=== PATIENT | female | born 1960 ===

== ENCOUNTER 2021-04-24 19:11 | Inpatient (IN) | payer BC ==
[2021-04-24] MEDS ORDERED: Norepinephrine 8 MG/0.9% NS 250 ML ONE (22:19)
[2021-04-24] MEDS ORDERED: Propofol 1,000 MG/100 ML VIAL IV ONE (22:19)
[2021-04-24] MEDS ORDERED: Ondansetron PF 4 MG/2 ML Vial IVP PRN (22:31)
[2021-04-24] MEDS ORDERED: Ventilator Sedation Protocol 1 EACH FS SCH (22:45)
[2021-04-24 22:59] LABS: Hemoglobin 10.5 g/dL (12.0-16.0); Mean Corpuscular HGB CONC 31.1 g/dL (32.0-36.0); Mean Corpuscular Hemoglobin 30.1 pg (27.0-31.0); Mean Corpuscular Volume 96.8 fL (78.0-98.0); Mean Platelet Volume 8.7 fL (7.4-10.4); Platelet Count 236 thou/uL (130-400); RBC Distribution Width 14.7 % (11.5-14.5); Red Blood Cell (RBC) Count 3.49 mill/uL (4.20-5.40); White Blood Cell (WBC) Count 20.6 thou/uL (4.8-10.8)
[2021-04-24] MEDS ORDERED: Fentanyl BOLUS 250 ML IVPB PRN (23:00)
[2021-04-24] MEDS ORDERED: Morphine 4 MG/ML VIAL SLOW IVP PRN (23:00)
[2021-04-24] MEDS ORDERED: Propofol BOLUS 1,000 MG/100 ML VIAL IV PRN (23:00)
[2021-04-24] MEDS ORDERED: DISCONTINUE PREVIOUS NARCOTIC PAIN MEDICATIONS AND BENZODIAZEPINES FS SCH (23:00)
[2021-04-24] MEDS ORDERED: Morphine 2 MG/ML VIAL SLOW IVP PRN (23:00)
[2021-04-24 23:14] LABS: Band 38 % (5-11); Hypochromia SLIGHT = 6-15 cells (100X) (0-5/hpf); MDiff Complete? YES; Monocytes 9 % (0-10); Neutrophil 53 % (42-75); Platelet Morphology Comment Appears Adequate
[2021-04-24 23:23] LABS: ALT (SGPT) 60 U/L (8-55); AST (SGOT) 27 U/L (5-34); Albumin 2.7 g/dL (3.4-4.8); Alkaline Phosphatase 165 U/L (40-110); Anion Gap 22 mmol/L (10-20); BUN (Urea Nitrogen) 82 mg/dL (9.8-20.1); Bilirubin, Total 0.8 mg/dL (0.2-1.2); Calc. Creatinine Clearance 32 mL/min (70-130); Calcium 7.9 mg/dL (7.8-10.44); Carbon Dioxide 25 mmol/L (23-31); Chloride 94 mmol/L (98-107); Globulin 4.2 g/dL (2.4-3.5); Glucose 188 mg/dL (80-115); Potassium 4.3 mmol/L (3.5-5.1); Protein, Total 6.9 g/dL (5.8-8.1); Sodium 137 mmol/L (136-145)
[2021-04-24] MEDS: Norepinephrine 8 MG/0.9% NS 250 ML IVPB PRN (23:23)
[2021-04-24] MEDS: Propofol 1,000 MG/100 ML VIAL IV PRN (23:23)
[2021-04-24] MEDS ORDERED: HumaLOG 300 UNITS/3 ML VIAL SC PRN (23:56)
[2021-04-24] MEDS ORDERED: Dextrose 50% Abboject 50 ML SYRINGE SLOW IVP PRN (23:56)
[2021-04-24] MEDS ORDERED: Dextrose 5% in Water 1,000 ML IV PRN (23:56)
[2021-04-25] MEDS ORDERED: Sodium Chloride 0.9% 1,000 ML IV SCH (00:30)
[2021-04-25] MEDS: HumaLOG 300 UNITS/3 ML VIAL SC PRN ×2 (01:11→20:45)
[2021-04-25] MEDS ORDERED: Sterile Water 10 ML VIAL IVP PRN (02:17)
[2021-04-25] MEDS: Propofol 1,000 MG/100 ML VIAL IV PRN ×5 (03:00→20:18)
[2021-04-25] MEDS: Lorazepam 2 MG/ML VIAL SLOW IVP PRN (03:00)
[2021-04-25] MEDS: Vecuronium 10 MG VIAL IV PRN (03:05)
[2021-04-25 04:35] LABS: ALT (SGPT) 54 U/L (8-55); AST (SGOT) 29 U/L (5-34); Albumin 2.5 g/dL (3.4-4.8); Alkaline Phosphatase 150 U/L (40-110); Anion Gap 22 mmol/L (10-20); BUN (Urea Nitrogen) 86 mg/dL (9.8-20.1); Bilirubin, Total 0.7 mg/dL (0.2-1.2); Calc. Creatinine Clearance 30 mL/min (70-130); Calcium 7.6 mg/dL (7.8-10.44); Carbon Dioxide 24 mmol/L (23-31); Chloride 96 mmol/L (98-107); Globulin 3.8 g/dL (2.4-3.5); Glucose 164 mg/dL (80-115); Potassium 4.2 mmol/L (3.5-5.1); Protein, Total 6.3 g/dL (5.8-8.1); Sodium 138 mmol/L (136-145)
[2021-04-25 04:37] LABS: Band 38 % (5-11); Hemoglobin 9.4 g/dL (12.0-16.0); Hypochromia SLIGHT = 6-15 cells (100X) (0-5/hpf); MDiff Complete? YES; Mean Corpuscular HGB CONC 30.8 g/dL (32.0-36.0); Mean Corpuscular Hemoglobin 29.4 pg (27.0-31.0); Mean Corpuscular Volume 95.5 fL (78.0-98.0); Mean Platelet Volume 8.8 fL (7.4-10.4); Monocytes 13 % (0-10); Neutrophil 49 % (42-75); Platelet Count 217 thou/uL (130-400); Platelet Morphology Comment Appears Adequate; RBC Distribution Width 14.6 % (11.5-14.5); Red Blood Cell (RBC) Count 3.18 mill/uL (4.20-5.40); White Blood Cell (WBC) Count 17.7 thou/uL (4.8-10.8)
[2021-04-25 08:15] LABS: Actual Bicarbonate (HCO3a) 24.3 mEq/L (22-28); Base Excess (BEa) -2.8 mEq/L (-2.0 to +3.0); CO2 Tension 53.2 mmHg (35.0-45.0); Calcium, Ionized (arterial) 0.94 mmol/L (1.12-1.30); Carboxyhemoglobin (COHb) 0.1 gm% (0.0-3.0); Hemoglobin (Hb) 9.8 g/dL (12.0-16.0); Potassium - ABG Lab 3.98 mmol/L (3.70-5.30); Puncture Site Arterial Line; pH, Arterial 7.28 (7.35-7.45)
[2021-04-25] MEDS ORDERED: Enoxaparin Sodium 40 MG/0.4 ML SYRINGE SC SCH (09:00)
[2021-04-25] MEDS: Famotidine 20 MG TAB PO SCH (10:01)
[2021-04-25] MEDS: Zinc Sulfate 220 MG CAP PO SCH (10:01)
[2021-04-25] MEDS: Dexamethasone 10 MG/ML VIAL SLOW IVP SCH ×2 (10:02→20:18)
[2021-04-25] MEDS: Ascorbic Acid 500 mg Chewable Tablet PO SCH (10:02)
[2021-04-25] MEDS ORDERED: Vancomycin 1 GM in Premix Bag 1 BAG IVPB SCH (10:45)
[2021-04-25 11:14] LABS: Clarity Turbid (Clear)
[2021-04-25 11:15] LABS: Leukocyte Unable to Interpret (Negative); Nitrite Unable to Interpret (Negative); Protein, Urine (Dipstick) Unable to Interpret mg/dL (Neg-Trace); Specific Gravity, Urine 1.015 (1.002-1.036); pH, Urine 5.7 (5.0-9.0)
[2021-04-25 11:16] LABS: Bilirubin Unable to Interpret (Negative); Blood, Urine Unable to Interpret (Negative); Glucose, Urine (Dipstick) Unable to Interpret mg/dL (Negative); Ketone, Urine Unable to Interpret mg/dL (Negative); Urobilinogen UNABLE TO INTERPRET mg/dL (Less than 2)
[2021-04-25 11:18] LABS: RBC/HPF Greater than 50 HPF (0-3)
[2021-04-25 11:20] LABS: Bacteria/HPF 1+ HPF (None Seen)
[2021-04-25 11:36] LABS: Creatinine, Urine 32.45 mg/dL (47-110)
[2021-04-25] MEDS: Sodium Chloride 0.9% 1,000 ML IV SCH ×2 (13:19→20:19)
[2021-04-25] MEDS: Acetaminophen 325 MG TAB PO PRN ×2 (13:29→17:39)
[2021-04-25] MEDS: Albumin 25% 25 GM/100 ML BOT IVPB SCH ×2 (13:30→20:18)
[2021-04-25] MEDS: Cefepime 2 GM in Sodium Chloride 0.9% 100 ML IVPB SCH (15:46)
[2021-04-25] MEDS: Norepinephrine 8 MG/0.9% NS 250 ML IVPB PRN (17:39)
[2021-04-26] MEDS: Albumin 25% 25 GM/100 ML BOT IVPB SCH ×2 (02:12→10:11)
[2021-04-26] MEDS: Sodium Chloride 0.9% 1,000 ML IV SCH (04:00)
[2021-04-26 04:55] LABS: ALT (SGPT) 48 U/L (8-55); AST (SGOT) 45 U/L (5-34); Alkaline Phosphatase 99 U/L (40-110); Anion Gap 27 mmol/L (10-20); BUN (Urea Nitrogen) 104 mg/dL (9.8-20.1); Bilirubin, Total 0.8 mg/dL (0.2-1.2); Calc. Creatinine Clearance 24 mL/min (70-130); Calcium 6.5 mg/dL (7.8-10.44); Carbon Dioxide 19 mmol/L (23-31); Chloride 97 mmol/L (98-107); Globulin 2.6 g/dL (2.4-3.5); Glucose 158 mg/dL (80-115); Potassium 4.5 mmol/L (3.5-5.1); Protein, Total 5.6 g/dL (5.8-8.1); Sodium 138 mmol/L (136-145)
[2021-04-26 05:58] LABS: Band 21 % (5-11); Hemoglobin 8.2 g/dL (12.0-16.0); Lymphocytes 8 % (21-51); MDiff Complete? YES; Mean Corpuscular HGB CONC 31.8 g/dL (32.0-36.0); Mean Corpuscular Hemoglobin 29.7 pg (27.0-31.0); Mean Corpuscular Volume 93.5 fL (78.0-98.0); Mean Platelet Volume 8.8 fL (7.4-10.4); Monocytes 6 % (0-10); Myelocyte 5 % (0-0); Neutrophil 60 % (42-75); Platelet Count 180 thou/uL (130-400); Platelet Morphology Comment Appears Adequate; RBC Distribution Width 14.6 % (11.5-14.5); RBC Morphology Normal; Red Blood Cell (RBC) Count 2.74 mill/uL (4.20-5.40); White Blood Cell (WBC) Count 13.6 thou/uL (4.8-10.8)
[2021-04-26 07:41] LABS: Actual Bicarbonate (HCO3a) 19.9 mEq/L (22-28); Base Excess (BEa) -7.2 mEq/L (-2.0 to +3.0); CO2 Tension 48.1 mmHg (35.0-45.0); Calcium, Ionized (arterial) 0.87 mmol/L (1.12-1.30); Carboxyhemoglobin (COHb) 0.3 gm% (0.0-3.0); Potassium - ABG Lab 4.51 mmol/L (3.70-5.30)
[2021-04-26 07:57] LABS: Puncture Site Arterial Line; pH, Arterial 7.24 (7.35-7.45)
[2021-04-26 07:58] LABS: ALV-art Gradient 329.325 mmHg (0-20)
[2021-04-26] MEDS: Propofol 1,000 MG/100 ML VIAL IV PRN ×2 (10:11→21:04)
[2021-04-26] MEDS: Dexamethasone 10 MG/ML VIAL SLOW IVP SCH ×2 (10:12→21:03)
[2021-04-26] MEDS: Famotidine 20 MG TAB PO SCH (10:12)
[2021-04-26] MEDS: Ascorbic Acid 500 mg Chewable Tablet PO SCH (10:12)
[2021-04-26] MEDS: Zinc Sulfate 220 MG CAP PO SCH (10:12)
[2021-04-26 11:35] LABS: Vancomycin, Random 19.1 ug/mL (See Comment)
[2021-04-26] MEDS ORDERED: Vancomycin HCl 500 MG in Sodium Chloride 0.9% 100 ML IVPB SCH (12:00)
[2021-04-26] MEDS ORDERED: Vancomycin 1 GM in Premix Bag 1 BAG IVPB SCH (12:00)
[2021-04-26] MEDS: Sodium Bicarbonate 140 MEQ in Dextrose 5% in Water 1,000 ML IV SCH (12:06)
[2021-04-26] MEDS: Cefepime 2 GM in Sodium Chloride 0.9% 100 ML IVPB SCH (16:01)
[2021-04-26] MEDS: HumaLOG 300 UNITS/3 ML VIAL SC PRN ×2 (17:53→21:11)
[2021-04-27] MEDS: Sodium Bicarbonate 140 MEQ in Dextrose 5% in Water 1,000 ML IV SCH ×2 (04:31→21:27)
[2021-04-27] MEDS: HumaLOG 300 UNITS/3 ML VIAL SC PRN ×4 (04:32→22:51)
[2021-04-27] MEDS: Lorazepam 2 MG/ML VIAL SLOW IVP PRN (04:36)
[2021-04-27 05:02] LABS: Band 38 % (5-11); Hemoglobin 8.5 g/dL (12.0-16.0); Hypochromia SLIGHT = 6-15 cells (100X) (0-5/hpf); Lymphocytes 1 % (21-51); MDiff Complete? YES; Mean Corpuscular HGB CONC 32.7 g/dL (32.0-36.0); Mean Corpuscular Hemoglobin 30.2 pg (27.0-31.0); Mean Corpuscular Volume 92.3 fL (78.0-98.0); Mean Platelet Volume 9.3 fL (7.4-10.4); Metamyelocyte 3 % (0-0); Monocytes 6 % (0-10); Neutrophil 52 % (42-75); Platelet Count 138 thou/uL (130-400); Platelet Morphology Comment Appears Adequate; RBC Distribution Width 14.9 % (11.5-14.5); Red Blood Cell (RBC) Count 2.83 mill/uL (4.20-5.40); White Blood Cell (WBC) Count 15.6 thou/uL (4.8-10.8)
[2021-04-27 05:04] LABS: ALT (SGPT) 44 U/L (8-55); AST (SGOT) 41 U/L (5-34); Albumin 2.6 g/dL (3.4-4.8); Alkaline Phosphatase 117 U/L (40-110); Anion Gap 24 mmol/L (10-20); BUN (Urea Nitrogen) 124 mg/dL (9.8-20.1); Bilirubin, Total 0.7 mg/dL (0.2-1.2); Calc. Creatinine Clearance 23 mL/min (70-130); Calcium 6.6 mg/dL (7.8-10.44); Carbon Dioxide 19 mmol/L (23-31); Chloride 98 mmol/L (98-107); Globulin 3.2 g/dL (2.4-3.5); Glucose 184 mg/dL (80-115); Potassium 4.1 mmol/L (3.5-5.1); Protein, Total 5.8 g/dL (5.8-8.1); Sodium 137 mmol/L (136-145)
[2021-04-27] MEDS: Propofol 1,000 MG/100 ML VIAL IV PRN ×3 (05:39→18:31)
[2021-04-27 07:41] LABS: Actual Bicarbonate (HCO3a) 23.7 mEq/L (22-28); Base Excess (BEa) -2.7 mEq/L (-2.0 to +3.0); CO2 Tension 49.1 mmHg (35.0-45.0); Calcium, Ionized (arterial) 0.84 mmol/L (1.12-1.30); Carboxyhemoglobin (COHb) 0.3 gm% (0.0-3.0); Hemoglobin (Hb) 8.7 g/dL (12.0-16.0); Potassium - ABG Lab 3.81 mmol/L (3.70-5.30)
[2021-04-27] MEDS: Dexamethasone 10 MG/ML VIAL SLOW IVP SCH ×2 (08:37→21:27)
[2021-04-27] MEDS: Famotidine 20 MG TAB PO SCH (08:37)
[2021-04-27] MEDS: Zinc Sulfate 220 MG CAP PO SCH (08:37)
[2021-04-27 08:38] LABS: O2 Tension (PaO2), arterial 49.8 mmHg (> 80.0)
[2021-04-27] MEDS: Ascorbic Acid 500 mg Chewable Tablet PO SCH (08:38)
[2021-04-27 08:39] LABS: Puncture Site LRA
[2021-04-27 08:40] LABS: ALV-art Gradient 245.325 mmHg (0-20)
[2021-04-27 12:42] LABS: Vancomycin, Random 21.9 ug/mL (See Comment)
[2021-04-27] MEDS: Cefepime 2 GM in Sodium Chloride 0.9% 100 ML IVPB SCH (16:07)
[2021-04-28] MEDS: Propofol 1,000 MG/100 ML VIAL IV PRN ×2 (02:20→07:29)
[2021-04-28 04:39] LABS: Band 19 % (5-11); Eosinophils 1 % (0-10); Hemoglobin 9.4 g/dL (12.0-16.0); Lymphocytes 5 % (21-51); MDiff Complete? YES; Mean Corpuscular HGB CONC 33.2 g/dL (32.0-36.0); Mean Corpuscular Hemoglobin 30.1 pg (27.0-31.0); Mean Corpuscular Volume 90.7 fL (78.0-98.0); Metamyelocyte 3 % (0-0); Monocytes 7 % (0-10); Neutrophil 64 % (42-75); Platelet Count 102 thou/uL (130-400); Platelet Morphology Comment Appears Decreased; RBC Distribution Width 15.1 % (11.5-14.5); Reactive Lymphocytes 1 % (0-10); Red Blood Cell (RBC) Count 3.14 mill/uL (4.20-5.40); White Blood Cell (WBC) Count 16.2 thou/uL (4.8-10.8)
[2021-04-28 04:46] LABS: ALT (SGPT) 39 U/L (8-55); AST (SGOT) 33 U/L (5-34); Albumin 2.6 g/dL (3.4-4.8); Alkaline Phosphatase 116 U/L (40-110); Anion Gap 23 mmol/L (10-20); Bilirubin, Total 0.6 mg/dL (0.2-1.2); Calc. Creatinine Clearance 23 mL/min (70-130); Calcium 6.6 mg/dL (7.8-10.44); Carbon Dioxide 25 mmol/L (23-31); Chloride 97 mmol/L (98-107); Globulin 3.7 g/dL (2.4-3.5); Glucose 259 mg/dL (80-115); Potassium 4.1 mmol/L (3.5-5.1); Protein, Total 6.3 g/dL (5.8-8.1); Sodium 141 mmol/L (136-145)
[2021-04-28 04:57] LABS: BUN (Urea Nitrogen) 115 mg/dL (9.8-20.1)
[2021-04-28] MEDS: HumaLOG 300 UNITS/3 ML VIAL SC PRN ×4 (06:27→22:58)
[2021-04-28 07:19] LABS: Vancomycin, Random 20.2 ug/mL (See Comment)
[2021-04-28 07:26] LABS: Actual Bicarbonate (HCO3a) 28.9 mEq/L (22-28); Base Excess (BEa) 3.5 mEq/L (-2.0 to +3.0); CO2 Tension 47.8 mmHg (35.0-45.0); Calcium, Ionized (arterial) 0.84 mmol/L (1.12-1.30); Carboxyhemoglobin (COHb) 0.3 gm% (0.0-3.0); Hemoglobin (Hb) 9.4 g/dL (12.0-16.0); Potassium - ABG Lab 3.68 mmol/L (3.70-5.30)
[2021-04-28 07:27] LABS: O2 Tension (PaO2), arterial 57.6 mmHg (> 80.0)
[2021-04-28 07:28] LABS: Puncture Site LRA
[2021-04-28] MEDS: Dexamethasone 10 MG/ML VIAL SLOW IVP SCH ×2 (08:56→21:47)
[2021-04-28] MEDS: Zinc Sulfate 220 MG CAP PO SCH (08:56)
[2021-04-28] MEDS: Famotidine 20 MG TAB PO SCH (08:56)
[2021-04-28] MEDS: Ascorbic Acid 500 mg Chewable Tablet PO SCH (08:56)
[2021-04-28] MEDS: Heparin 5,000 UNITS/ML VIAL SC SCH ×2 (09:33→21:57)
[2021-04-28] MEDS: fentaNYL Citrate/PF 2,000 MCG in Sodium Chloride 0.9% 60 ML IV SCH ×2 (10:20→22:21)
[2021-04-28] MEDS ORDERED: Vancomycin HCl 500 MG in Sodium Chloride 0.9% 100 ML IVPB SCH (12:00)
[2021-04-28] MEDS: Sodium Bicarbonate 140 MEQ in Dextrose 5% in Water 1,000 ML IV SCH (12:32)
[2021-04-28] MEDS: Senokot S 8.6-50 MG TAB PO SCH ×2 (12:39→21:57)
[2021-04-28] MEDS: Polyethylene Glycol 3350 17 GM Packet PER TUBE SCH (12:39)
[2021-04-28] MEDS: Lorazepam 2 MG/ML VIAL SLOW IVP PRN ×2 (14:22→22:10)
[2021-04-28] MEDS ORDERED: Magnesium 2 GM/50 ML 2 GM in Premix Bag 1 BAG IVPB SCH (14:45)
[2021-04-28] MEDS: Cefepime 2 GM in Sodium Chloride 0.9% 100 ML IVPB SCH (16:41)
[2021-04-29] MEDS: Lorazepam 2 MG/ML VIAL SLOW IVP PRN ×3 (01:40→23:39)
[2021-04-29] MEDS: Vecuronium 10 MG VIAL IV PRN (01:48)
[2021-04-29] MEDS: Sodium Bicarbonate 140 MEQ in Dextrose 5% in Water 1,000 ML IV SCH ×2 (01:50→03:51)
[2021-04-29] MEDS: Propofol 1,000 MG/100 ML VIAL IV PRN ×5 (03:47→21:26)
[2021-04-29 03:57] LABS: Band 34 % (5-11); Eosinophils 1 % (0-10); Hemoglobin 9.6 g/dL (12.0-16.0); Hypochromia SLIGHT = 6-15 cells (100X) (0-5/hpf); Lymphocytes 9 % (21-51); MDiff Complete? YES; Mean Corpuscular HGB CONC 31.7 g/dL (32.0-36.0); Mean Corpuscular Volume 91.6 fL (78.0-98.0); Mean Platelet Volume 10.5 fL (7.4-10.4); Monocytes 4 % (0-10); Neutrophil 52 % (42-75); Platelet Count 53 thou/uL (130-400); Platelet Morphology Comment Appears Decreased; RBC Distribution Width 15.2 % (11.5-14.5); Red Blood Cell (RBC) Count 3.32 mill/uL (4.20-5.40)
[2021-04-29 04:07] LABS: Magnesium 3.2 mg/dL (1.6-2.6)
[2021-04-29] MEDS: HumaLOG 300 UNITS/3 ML VIAL SC PRN ×4 (04:19→21:59)
[2021-04-29 06:48] LABS: Anion Gap 23 mmol/L (10-20); Calc. Creatinine Clearance 26 mL/min (70-130); Calcium 6.4 mg/dL (7.8-10.44); Carbon Dioxide 25 mmol/L (23-31); Chloride 93 mmol/L (98-107); Glucose 326 mg/dL (80-115); Potassium 4.3 mmol/L (3.5-5.1); Sodium 137 mmol/L (136-145)
[2021-04-29 06:59] LABS: BUN (Urea Nitrogen) 123 mg/dL (9.8-20.1)
[2021-04-29 07:45] LABS: Actual Bicarbonate (HCO3a) 30.4 mEq/L (22-28); Base Excess (BEa) 3.3 mEq/L (-2.0 to +3.0); Calcium, Ionized (arterial) 0.85 mmol/L (1.12-1.30); Carboxyhemoglobin (COHb) 0.8 gm% (0.0-3.0); Hemoglobin (Hb) 9.1 g/dL (12.0-16.0); pH, Arterial 7.31 (7.35-7.45)
[2021-04-29 07:47] LABS: CO2 Tension 61.3 mmHg (35.0-45.0); O2 Tension (PaO2), arterial 55.2 mmHg (> 80.0); Puncture Site RRA
[2021-04-29 07:48] LABS: ALV-art Gradient 260.325 mmHg (0-20)
[2021-04-29] MEDS: Sodium Chloride 0.9% 1,000 ML IV SCH ×2 (08:31→15:40)
[2021-04-29] MEDS: Heparin 5,000 UNITS/ML VIAL SC SCH (09:45)
[2021-04-29] MEDS: Famotidine 20 MG TAB PO SCH (09:59)
[2021-04-29] MEDS: Polyethylene Glycol 3350 17 GM Packet PER TUBE SCH (09:59)
[2021-04-29] MEDS: Dexamethasone 10 MG/ML VIAL SLOW IVP SCH ×2 (09:59→21:59)
[2021-04-29] MEDS: Senokot S 8.6-50 MG TAB PO SCH ×2 (09:59→21:59)
[2021-04-29] MEDS: Zinc Sulfate 220 MG CAP PO SCH (09:59)
[2021-04-29] MEDS: Ascorbic Acid 500 mg Chewable Tablet PO SCH (09:59)
[2021-04-29] MEDS: fentaNYL Citrate/PF 2,000 MCG in Sodium Chloride 0.9% 60 ML IV SCH ×2 (10:00→23:58)
[2021-04-29 13:43] LABS: Hemoglobin 9.9 g/dL (12.0-16.0); Mean Corpuscular HGB CONC 32.7 g/dL (32.0-36.0); Mean Corpuscular Hemoglobin 29.9 pg (27.0-31.0); Mean Corpuscular Volume 91.6 fL (78.0-98.0); Platelet Count 43 thou/uL (130-400); RBC Distribution Width 15.3 % (11.5-14.5); White Blood Cell (WBC) Count 14.2 thou/uL (4.8-10.8)
[2021-04-29 14:00] LABS: Fibrinogen 782 mg/dL (253-463)
[2021-04-29 14:01] LABS: INR-International Normal Ratio 1.1; PTT 26.5 sec (22.9-36.1); Prothrombin Time 14.6 sec (12.0-14.7)
[2021-04-29 14:05] LABS: Platelet Count 43 thou/uL (130-400)
[2021-04-29 14:09] LABS: Band 13 % (5-11); D-Dimer Test 12.67 *mcg/mL (0.27-0.43); Eosinophils 1 % (0-10); Lymphocytes 8 % (21-51); MDiff Complete? YES; Metamyelocyte 3 % (0-0); Monocytes 3 % (0-10); Neutrophil 72 % (42-75); Nucleated RBC 1 % (0); Platelet Morphology Comment Appears Decreased; Polychromasia SLIGHT = 2-3 cells (100X) (0-2/hpf); Target Cells SLIGHT = 2-5 cells (100X) (0-1/hpf)
[2021-04-29] MEDS: Cefepime 2 GM in Sodium Chloride 0.9% 100 ML IVPB SCH (15:38)
[2021-04-30] MEDS: Sodium Chloride 0.9% 1,000 ML IV SCH ×4 (00:20→21:30)
[2021-04-30] MEDS: Propofol 1,000 MG/100 ML VIAL IV PRN ×6 (01:21→19:25)
[2021-04-30] MEDS: HumaLOG 300 UNITS/3 ML VIAL SC PRN ×4 (03:56→21:44)
[2021-04-30 05:37] LABS: ALT (SGPT) 35 U/L (8-55); AST (SGOT) 31 U/L (5-34); Albumin 2.5 g/dL (3.4-4.8); Alkaline Phosphatase 107 U/L (40-110); Anion Gap 23 mmol/L (10-20); Bilirubin, Total 0.5 mg/dL (0.2-1.2); Calc. Creatinine Clearance 28 mL/min (70-130); Calcium 6.1 mg/dL (7.8-10.44); Carbon Dioxide 27 mmol/L (23-31); Chloride 95 mmol/L (98-107); Globulin 3.8 g/dL (2.4-3.5); Glucose 233 mg/dL (80-115); Protein, Total 6.3 g/dL (5.8-8.1); Sodium 140 mmol/L (136-145)
[2021-04-30 05:48] LABS: BUN (Urea Nitrogen) 132 mg/dL (9.8-20.1)
[2021-04-30 05:58] LABS: Hemoglobin 8.9 g/dL (12.0-16.0); Mean Corpuscular HGB CONC 32.6 g/dL (32.0-36.0); RBC Distribution Width 15.4 % (11.5-14.5); Red Blood Cell (RBC) Count 2.98 mill/uL (4.20-5.40)
[2021-04-30 06:06] LABS: Band 20 % (5-11); Lymphocytes 3 % (21-51); MDiff Complete? YES; Mean Platelet Volume 11.1 fL (7.4-10.4); Metamyelocyte 4 % (0-0); Monocytes 1 % (0-10); Myelocyte 2 % (0-0); Neutrophil 70 % (42-75); Platelet Count 38 thou/uL (130-400); Platelet Morphology Comment Appears Decreased
[2021-04-30] MEDS: Dexamethasone 10 MG/ML VIAL SLOW IVP SCH ×2 (08:41→21:30)
[2021-04-30] MEDS: Zinc Sulfate 220 MG CAP PO SCH ×2 (08:45→13:08)
[2021-04-30] MEDS: Famotidine 20 MG TAB PO SCH ×2 (08:45→13:08)
[2021-04-30] MEDS: Ascorbic Acid 500 mg Chewable Tablet PO SCH ×2 (08:45→13:08)
[2021-04-30] MEDS: Senokot S 8.6-50 MG TAB PO SCH ×3 (08:45→21:30)
[2021-04-30] MEDS: Polyethylene Glycol 3350 17 GM Packet PER TUBE SCH (08:45)
[2021-04-30] MEDS ORDERED: Iopamidol 370 76% 50 ML VIAL FS ONE (08:56)
[2021-04-30] MEDS: Lorazepam 2 MG/ML VIAL SLOW IVP PRN (13:07)
[2021-04-30] MEDS: fentaNYL Citrate/PF 2,000 MCG in Sodium Chloride 0.9% 60 ML IV SCH (14:03)
[2021-04-30] MEDS: Cefepime 2 GM in Sodium Chloride 0.9% 100 ML IVPB SCH (16:03)
[2021-05-01] MEDS: Propofol 1,000 MG/100 ML VIAL IV PRN (00:02)
[2021-05-01] MEDS: Lorazepam 2 MG/ML VIAL SLOW IVP PRN (01:21)
[2021-05-01] MEDS: Vecuronium 10 MG VIAL IV PRN (01:21)
[2021-05-01 01:56] VITALS: BP 151/71
[2021-05-01] MEDS ORDERED: Norepinephrine 8 MG/0.9% NS 250 ML ONE (03:01)
[2021-05-01 03:51] LABS: Actual Bicarbonate (HCO3a) 21.9 mEq/L (22-28); Base Excess (BEa) -10.4 mEq/L (-2.0 to +3.0); CO2 Tension 91.7 mmHg (35.0-45.0); Carboxyhemoglobin (COHb) 1.2 gm% (0.0-3.0); Hemoglobin (Hb) 10.6 g/dL (12.0-16.0); O2 Tension (PaO2), arterial 71.6 mmHg (> 80.0)
[2021-05-01 03:52] LABS: ALV-art Gradient 526.775 mmHg (0-20); Analyzer IN Cardio OR; Calcium, Ionized (arterial) 0.87 mmol/L (1.12-1.30); Potassium - ABG Lab 5.93 mmol/L (3.70-5.30); Puncture Site LBR
[2021-05-01] MEDS ORDERED: Sodium Bicarb 50 MEQ/50 ML Abboject 8.4% SYRINGE ONE (04:06)
[2021-05-01 04:11] LABS: Anion Gap 23 mmol/L (10-20); Calc. Creatinine Clearance 0 mL/min (70-130); Calcium 5.7 mg/dL (7.8-10.44); Carbon Dioxide 26 mmol/L (23-31); Chloride 100 mmol/L (98-107); Glucose 206 mg/dL (80-115); Potassium 6.1 mmol/L (3.5-5.1); Sodium 143 mmol/L (136-145)
[2021-05-01 04:17] LABS: BUN (Urea Nitrogen) 142 mg/dL (9.8-20.1)
[2021-05-01 04:45] LABS: Band 13 % (5-11); Hemoglobin 9.3 g/dL (12.0-16.0); Lymphocytes 15 % (21-51); MDiff Complete? YES; Mean Corpuscular HGB CONC 31.6 g/dL (32.0-36.0); Mean Corpuscular Hemoglobin 29.5 pg (27.0-31.0); Mean Corpuscular Volume 93.2 fL (78.0-98.0); Mean Platelet Volume 10.8 fL (7.4-10.4); Neutrophil 72 % (42-75); Platelet Count 67 thou/uL (130-400); Platelet Morphology Comment Appears Decreased; RBC Distribution Width 15.5 % (11.5-14.5); Red Blood Cell (RBC) Count 3.14 mill/uL (4.20-5.40); White Blood Cell (WBC) Count 26.1 thou/uL (4.8-10.8)
[2021-05-01 05:19] LABS: INR-International Normal Ratio 1.2; Prothrombin Time 14.8 sec (12.0-14.7)
[2021-05-01 05:27] VITALS: BMI 46.9
[2021-05-01 05:29] VITALS: TEMP 98.8
[2021-05-01 15:37] LABS: Heparin-Induced Ab (HITA) 0.594 OD (0.000-0.400)
== END 2021-05-01 08:45 | disposition expired | DRG 870 ==
LOC: CCU 22:15
PROVIDERS: ADMIT Internal Medicine; ATTEND Hospitalist
PROC: 5A1955Z Respiratory Ventilation, Greater than 96 Consecutive Hours (ICD-10-PCS; principal; 2021-04-24)
PROC: 3E033XZ Introduction of Vasopressor into Peripheral Vein, Percutaneous Approach (ICD-10-PCS; 2021-04-24)
PROC: 0BH18EZ Insertion of Endotracheal Airway into Trachea, Via Natural or Artificial Opening Endoscopic (ICD-10-PCS; 2021-04-24)
PROC: 8E0ZXY6 Isolation (ICD-10-PCS; 2021-04-24)
PROC: 06H03DZ Insertion of Intraluminal Device into Inferior Vena Cava, Percutaneous Approach (ICD-10-PCS; 2021-04-30)
DX: A41.89 Other specified sepsis (principal); U07.1 COVID-19; J12.82 Pneumonia due to coronavirus disease 2019; R65.21 Severe sepsis with septic shock; J80 Acute respiratory distress syndrome; N17.0 Acute kidney failure with tubular necrosis; Z68.42 Body mass index [BMI] 45.0-49.9, adult; I82.442 Acute embolism and thrombosis of left tibial vein; E87.2 Acidosis; G93.49 Other encephalopathy; I47.2 Ventricular tachycardia; Z66 Do not resuscitate; E66.01 Morbid (severe) obesity due to excess calories; E11.9 Type 2 diabetes mellitus without complications; R31.0 Gross hematuria; I10 Essential (primary) hypertension; E78.5 Hyperlipidemia, unspecified; D69.6 Thrombocytopenia, unspecified; R00.1 Bradycardia, unspecified; I46.9 Cardiac arrest, cause unspecified; Z88.0 Allergy status to penicillin; Z91.040 Latex allergy status; Z91.041 Radiographic dye allergy status; Z79.84 Long term (current) use of oral hypoglycemic drugs; Z78.1 Physical restraint status; Z79.01 Long term (current) use of anticoagulants
CPT/HCPCS: 36415; 36416; 36600; 37191; 71045; 74018; 74176; 80048; 80053; 80202; 81001; 82570; 82805; 83735; 84300; 85025; 85049; 85300; 85362; 85379; 85384; 85610; 85730; 86140; 87086; 93005; 93010; 93970; 94002; 94003; C1880; J0692; J1100; J1644; J1815; J2060; J2270; J2704; J3010; J3370; J3475; J3490; J7050; J7070; P9047; Q9967